=== PATIENT | male | born 1970 | race American Indian/Alaskan Native ===

== ENCOUNTER 2020-02-08 11:29 | Outpatient (CLI) | payer OTHER ==
--- NOTE | 2020-02-08 12:17 | XRay Report ---
CHEST 2 VIEWS INDICATION / CLINICAL INFORMATION: SLEEP APNEA,UNSPECIFIED TYPE. FINDINGS: SUPPORT DEVICES: None. HEART / MEDIASTINUM: No significant abnormality. LUNGS / PLEURA: No significant pulmonary or pleural abnormality. No pneumothorax. ADDITIONAL FINDINGS: No significant additional findings. IMPRESSION: 1. No acute findings. Signer Name: Kevin Kerr MD Signed: 02/08/2020 12:12 PM Workstation Name: [id number]
== END 2020-02-08 11:30 | disposition home or self-care (01) ==
LOC: XRAY 11:29
PROVIDERS: ATTEND Internal Medicine
DX: G47.30 Sleep apnea, unspecified (principal)
CPT/HCPCS: 71046